=== PATIENT | female | born 1985 | race Caucasian/White ===

== ENCOUNTER 2016-04-27 18:06 | Emergency (ER) | payer OTHER ==
[2016-04-27 18:46] VITALS: BP 118/73; PULSE 100; TEMP 101.6; BMI 32.8
[2016-04-27] MEDS ORDERED: ACETAMINOPHEN 325 MG TABLET (FP) PO ONE (18:55)
[2016-04-27] MEDS ORDERED: KETOROLAC TROMETHAMINE 60 MG/2 ML VIAL IM ONE (22:27)
[2016-04-27] MEDS ORDERED: KETOROLAC TROMETHAMINE 60 MG/2 ML VIAL ONE (22:29)
--- NOTE | 2016-04-27 22:57 | PDOC ---
History of Present Illness - General Chief Complaint: Cold Symptoms Stated Complaint: HEADACHE Time Seen by Provider: 04/27/16 19:49 History Source: Patient Exam Limitations: No Limitations - History of Present Illness Initial Comments: 04/27/16 22:52 cough, fever; nasal congesion x 1 day Timing/Duration: reports: yesterday Severity: reports: mild Possible Cause: No: frequent episodes Modifying Factors: worse with: albuterol inhaler Associated Symptoms: reports: cough, fever/chills, headache, nasal drainage Past History - Past Medical History Allergies/Adverse Reactions: Allergies Allergy/AdvReac Type Severity Reaction Status Date / Time No Known Allergies Allergy Verified 04/27/16 18:46 Home Medications: Ambulatory Orders NK [No Known Home Medication] 04/27/16 Other medical history: NONE - Surgical History Appendectomy: Yes - Psycho/Social/Smoking Cessation Hx Suicidal Ideation: No Smoking History: Never smoked Hx Alcohol Use: No Drug/Substance Use Hx: No Review of Systems - Review of Systems Constitutional: Yes: Chills, Fever, Malaise. No: Symptoms Reported HEENTM: Yes: Symptoms Reported. No: Blurred Vision Respiratory: Yes: Cough Cardiac (ROS): No: Symptoms Reported ABD/GI: No: Symptoms Reported : Yes: Symptoms Reported *Physical Exam - Vital Signs Last Vital Signs Temp Pulse Resp BP Pulse Ox 101.6 F H 100 H 20 118/73 100 04/27/16 18:43 04/27/16 18:43 04/27/16 18:43 04/27/16 18:43 04/27/16 18:43 - Physical Exam General Appearance: Yes: Appropriately Dressed. No: Apparent Distress HEENT: positive: TMs Normal, Pharyngeal Erythema, Nasal Congestion. negative: TM Bulging, TM Dull, TM Erythema Neck: positive: Rigid, Supple, Lymphadenopathy (R). negative: Lymphadenopathy ( L) Respiratory/Chest: positive: Lungs Clear ED Treatment Course - ADDITIONAL ORDERS Additional order review: 04/27/16 20:35 Influenza Types A,B Antigen ([facility]) - Final Nasopharyngeal Swab - Final - Medications Given in the ED: ED Medications Discontinued Medications Generic Name Dose Route Start Last Admin Trade Name Freq PRN Reason Stop Dose Admin Acetaminophen 650 mg 04/27/16 18:55 04/27/16 18:55 Tylenol - PO 04/27/16 18:56 650 mg NOW ONE Administration Ketorolac Tromethamine 60 mg 04/27/16 22:27 04/27/16 22:33 Toradol Injection - IM 04/27/16 22:28 60 mg ONCE ONE Administration Medical Decision Making - Medical Decision Making 04/27/16 22:53 feeling better post toradol and motrin *DC/Admit/Observation/Transfer Diagnosis at time of Disposition: MO-PROB-0 - Discharge Dispostion Disposition: HOME Condition at time of disposition: Stable Admit: No - Patient Instructions Additional Instructions: please follow up with local MD if no better 2 days
== END 2016-04-27 23:10 | disposition home or self-care (01) ==
LOC: JERFT 18:06
PROC: 3E0233Z Introduction of Anti-inflammatory into Muscle, Percutaneous Approach (ICD-10-PCS; principal; 2016-04-27)
DX: R50.9 Fever, unspecified (principal)
CPT/HCPCS: 87070; 87430; 87804; 99281-25

== ENCOUNTER 2017-04-18 01:18 | Emergency (ER) | payer OTHER ==
[2017-04-18 01:54] VITALS: PULSE 70; TEMP 97.9; BMI 32.6
--- NOTE | 2017-04-18 01:54 | PDOC ---
History of Present Illness - General History Source: Patient Exam Limitations: No Limitations - History of Present Illness Initial Comments: 04/18/17 02:17 The patient is a 31 year old female, with no significant past medical history who presents to the emergency department with vomiting and diarrhea today. Patient reports waking up in her usual state of health this morning. Two hours prior to arrival, patient experienced sudden onset of diarrhea (non bloody, non mucoid) and vomiting (nonbloody nonbilious). Patient reports using the restroom however passed out. called EMS and patient was brought to the ED for further evaluation. Patient endorses generalized weakness and lethargy. Patient denies chest pain, headache or dizziness. Patient denies nausea, vomit or constipation. Patient denies dysuria, frequency, urgency or hematuria. Patient denies sick contacts or recent travel. Allergies: NKA Past surgical history: appendicitis, C section x2 Social history: None <Patsy Fish - Last Filed: 04/18/17 02:16> <Marianne Rowland - Last Filed: 04/19/17 02:45> - General Chief Complaint: Lethargy Stated Complaint: LETHARGY Time Seen by Provider: 04/18/17 01:35 Past History <Patsy Fish - Last Filed: 04/18/17 02:16> - Surgical History Appendectomy: Yes - Suicide/Smoking/Psychosocial Hx Smoking History: Never smoked Have you smoked in the past 12 months: No Information on smoking cessation initiated: No Hx Alcohol Use: No Drug/Substance Use Hx: No <Marianne Rowland - Last Filed: 04/19/17 02:45> - Past Medical History Allergies/Adverse Reactions: Allergies Allergy/AdvReac Type Severity Reaction Status Date / Time No Known Allergies Allergy Verified 04/18/17 01:49 Home Medications: Ambulatory Orders NK [No Known Home Medication] 04/27/16 Review of Systems - Review of Systems Able to Perform ROS?: Yes Comments:: 04/18/17 02:17 GENERAL/CONSTITUTIONAL: No fever or chills. No weakness. HEAD, EYES, EARS, NOSE AND THROAT: No change in vision. No ear pain or discharge. No sore throat. CARDIOVASCULAR: No chest pain or shortness of breath. RESPIRATORY: No cough, wheezing, or hemoptysis. GASTROINTESTINAL: + nausea, vomiting, diarrhea. No constipation. GENITOURINARY: No dysuria, frequency, or change in urination. MUSCULOSKELETAL: No joint or muscle swelling or pain. No neck or back pain. SKIN: No rash NEUROLOGIC: No headache, vertigo, loss of consciousness, or change in strength/ sensation. ENDOCRINE: No increased thirst. No abnormal weight change. HEMATOLOGIC/LYMPHATIC: No anemia, easy bleeding, or history of blood clots. ALLERGIC/IMMUNOLOGIC: No hives or skin allergy. <Patsy Fish - Last Filed: 04/18/17 02:16> *Physical Exam - Vital Signs Last Vital Signs Temp Pulse Resp BP Pulse Ox 97.9 F 70 20 126/71 99 04/18/17 01:50 04/18/17 01:50 04/18/17 01:50 04/18/17 01:50 04/18/17 01:50 - Physical Exam Comments: 04/18/17 02:17 GENERAL: Awake, alert, and fully oriented, in no acute distress HEAD: No signs of trauma EYES: PERRLA, EOMI, sclera anicteric, conjunctiva clear ENT: Auricles normal inspection, hearing grossly normal, nares patent, oropharynx clear without exudates. Moist mucosa NECK: Normal ROM, supple, no lymphadenopathy, JVD, or masses LUNGS: Breath sounds equal, clear to auscultation bilaterally. No wheezes, and no crackles HEART: Regular rate and rhythm, normal S1 and S2, no murmurs, rubs or gallops ABDOMEN: Soft, nontender, normoactive bowel sounds. No guarding, no rebound. No masses EXTREMITIES: Normal range of motion, no edema. No clubbing or cyanosis. No cords, erythema, or tenderness NEUROLOGICAL: Cranial nerves II through XII grossly intact. Normal speech. SKIN: Warm, Dry, normal turgor, no rashes or lesions noted. <Patsy Fish - Last Filed: 04/18/17 02:16> - Vital Signs Last Vital Signs Temp Pulse Resp BP Pulse Ox 97.9 F 70 20 126/71 99 04/18/17 01:50 04/18/17 01:50 04/18/17 01:50 04/18/17 01:50 04/18/17 01:50 <Marianne Rowland - Last Filed: 04/19/17 02:45> ED Treatment Course - ADDITIONAL ORDERS Additional order review: Laboratory Results 04/18/17 01:50 Opiates Screen Negative Methadone Screen Negative Barbiturate Screen Negative Phencyclidine Screen Negative Ur Amphetamines Screen Negative MDMA (Ecstasy) Screen Negative Benzodiazepines Screen Negative Cocaine Screen Negative U Marijuana (THC) Screen Negative <Patsy Fish - Last Filed: 04/18/17 02:16> - LABORATORY CBC & Chemistry Diagram: 04/18/17 02:40 04/18/17 02:40 <Marianne Rowland - Last Filed: 04/19/17 02:45> Medical Decision Making - Medical Decision Making 04/18/17 02:47 UA and UTOX normal. Pt is getting hydration and pepcid. I am still awaiting Chem and CBC results. Pt will go home once her labs return 04/19/17 02:43 Labs normal pt was discharged <Marianne Rowland - Last Filed: 04/19/17 02:45> *DC/Admit/Observation/Transfer - Attestations Scribe Attestion: 04/18/17 02:17 Documentation prepared by Patsy Fish, acting as medical care evaluation specialist for Marianne Rowland MD/DO. <Patsy Fish - Last Filed: 04/18/17 02:16> - Discharge Dispostion Admit: No <Marianne Rowland - Last Filed: 04/19/17 02:45> Diagnosis at time of Disposition: Gastroenteritis - Discharge Dispostion Disposition: HOME Condition at time of disposition: Stable - Patient Instructions Printed Discharge Instructions: Viral Gastroenteritis
[2017-04-18 02:01] LABS: URINE APPEARANCE CLEAR; URINE BILIRUBIN NEGATIVE (NEGATIVE); URINE BLOOD 1+ (NEGATIVE); URINE COLOR COLORLESS; URINE GLUCOSE (UA) NEGATIVE (NEGATIVE); URINE KETONE NEGATIVE (NEGATIVE); URINE LEUK ESTERASE NEGATIVE (NEGATIVE); URINE NITRITE NEGATIVE (NEGATIVE); URINE PROTEIN NEGATIVE (NEGATIVE); URINE UROBILINOGEN NEGATIVE mg/dL (0.2-1.0)
[2017-04-18] MEDS ORDERED: SODIUM CHLORIDE 0.9% 500 ML INFUS.BAG IV ONE (02:06)
[2017-04-18] MEDS ORDERED: FAMOTIDINE 20 MG/50 ML IVPB 20 MG/50 ML MG IVPB ONE ×2 (02:06→02:33)
[2017-04-18 02:14] LABS: COCAINE, UR NEGATIVE ng/ml (CUTOFF=300); METHADONE, UR NEGATIVE ng/ml (CUTOFF=300); OPIATES, URI NEGATIVE ng/ml (CUTOFF=300); PHENCYCLIDINE,URINE NEGATIVE ng/ml (CUTOFF=25); URINE AMPHETAMINES NEGATIVE ng/ml (CUTOFF=500); URINE BARBITURATES NEGATIVE ng/ml (CUTOFF=200); URINE BENZODIAZEPINES NEGATIVE ng/ml (CUTOFF=200)
[2017-04-18 02:30] LABS: URINE BACTERIA RARE /hpf (NONE SEEN); URINE MUCUS RARE
[2017-04-18 03:10] VITALS: BP 120/80
[2017-04-18 03:11] LABS: BASO % 0.4 % (0-2.0); EOS % 2.2 % (0-4.5); HEMATOCRIT 37.2 % (32.4-45.2); HEMOGLOBIN 13.1 GM/dL (10.7-15.3); LYMPH % 40.9 % (8-40); MCH 30.9 pg (25.7-33.7); MCHC 35.3 g/dl (32.0-36.0); MEAN CELL VOLUME 87.5 fl (80-96); MEAN PLT VOLUME 10.4 fl (7.5-11.1); MONO % 4.9 % (3.8-10.2); NEUT % 51.6 % (42.8-82.8); PLATELET COUNT 247 K/MM3 (134-434); RBC 4.25 M/mm3 (3.60-5.2); RDW 12.7 % (11.6-15.6); WHITE BLOOD COUNT 10.6 K/mm3 (4.0-10.0)
[2017-04-18 03:38] LABS: ALBUMIN 3.7 g/dl (3.4-5.0); ALK PHOS 92 U/L (45-117); ANION GAP 11 (8-16); BILIRUBIN,TOTAL 0.5 mg/dL (0.2-1.0); CALCIUM 8.6 mg/dL (8.5-10.1); CHLORIDE 100 mmol/L (98-107); CO2 26 mmol/L (21-32); CREATININE 0.7 mg/dL (0.55-1.02); SODIUM 137 mmol/L (136-145)
[2017-04-18 03:39] LABS: GLUCOSE,RANDOM 125 mg/dL (74-106)
[2017-04-18 03:41] LABS: POTASSIUM 3.8 mmol/L (3.5-5.1)
== END 2017-04-18 05:12 | disposition home or self-care (01) ==
LOC: JER 01:18
PROC: 3E033GC Introduction of Other Therapeutic Substance into Peripheral Vein, Percutaneous Approach (ICD-10-PCS; principal; 2017-04-18)
DX: K52.9 Noninfective gastroenteritis and colitis, unspecified (principal)
CPT/HCPCS: 36415; 80053; 80307; 81003; 81015; 84702; 85025; 96365; 99282-25